=== PATIENT | female | born 1975 | race Asian ===

== ENCOUNTER 2016-07-26 13:52 | Inpatient (IN) | payer OTHER ==
--- NOTE | 2016-07-26 14:40 | EDPHY ---
H & P Time Seen by Provider: 07/26/16 14:04 HPI/ROS: CHIEF COMPLAINT: Arm and leg numbness and weakness HISTORY OF PRESENT ILLNESS: This 40-year-old woman had a respiratory virus 3 weeks ago which lasted about 2 weeks. Her had a similar illness and she had a hacking cough for a couple of weeks which resolved about a week ago. However last Wednesday night she 1st noted weakness in her legs with her left knee giving out going down the stairs. She subsequently noticed some numbness in her finger tips as well in the tips of her toes and the plantar surface of both feet. She saw Dr. Audrey Wing at [facility] on Wednesday and had labs which apparently were normal. She was then referred to Neurology but has not seen anyone yet. Over the past 24-48 hours she developed a slight headache. She developed more numbness and weakness in her arms including dropping her electric toothbrush last night using her right hand. She also has some increased difficulty writing especially using cursive script. Symptoms today moderate and increasing. Not associated with neck or back pain. Difficulty standing on 1 foot. REVIEW OF SYSTEMS: Eye: no change in vision, no double vision ENT: no sore throat Cardiac: no chest pain or syncope Pulmonary: no cough or SOB Abdomen: no vomiting, diarrhea, abdominal pain Musculoskeletal: no back pain or neck pain Skin: no rash Neuro: HPI Constitutional: no fever : no urinary symptoms A comprehensive 10 point review of systems is otherwise negative aside from elements mentioned in the history of present illness. PAST MEDICAL HISTORY: Negative Social history: General Appearance: Alert and conversant, cooperative. Eyes: No scleral icterus. ENT, Mouth: Normal mucous membranes. Respiratory: Normal respiratory effort, breath sounds equal, lungs are clear to auscultation. Cardiovascular: Regular rate and rhythm. Gastrointestinal: Abdomen is soft and non tender. Neurological: Alert and oriented x3. Normally conversant. Patient can stand on 1 foot. No pronator drift and [id number] normal bilaterally. Toes downgoing. She does not have patellar or ankle reflexes on either side. Skin: Warm and dry, no rashes. Musculoskeletal: No peripheral edema and no joint swelling. Psychiatric: Not agitated. Emergency Department course/MDM: Discussed with Ghanshyam at 1439. MRI to look for white matter lesions. Concern for possibility of multiple sclerosis, or Guillain-Addis syndrome. Discussed with the patient at 2:45 p.m. and consented. 1730: Respiratory requested to perform baseline spirometry. Admission per consulting neurologist Dr. Morrissey who is in the room with the patient at this time. Smoking Status: Never smoked Constitutional: Initial Vital Signs Temperature (C) 36.6 C 07/26/16 13:54 Heart Rate 81 07/26/16 13:54 Respiratory Rate 16 07/26/16 13:54 Blood Pressure 128/90 H 07/26/16 13:54 O2 Sat (%) 98 07/26/16 13:54 O2 Delivery Mode Room Air Allergies/Adverse Reactions: amoxicillin Allergy (Severe, Verified 07/26/16 18:14) Rash levofloxacin [From Levaquin] Allergy (Severe, Verified 07/26/16 18:13) Anaphylaxis Sulfa (Sulfonamide Antibiotics) Allergy (Severe, Verified 07/26/16 18:13) Unknown Home Medications: Medication Instructions Recorded Levonorgestrel-Ethin Estradiol 1 tab PO DAILY 07/26/16 [Myzilra-28 Tablet] Medical Decision Making - Diagnostics Imaging Results: Imaging Impressions Brain MRI 07/26/16 14:40 Impression: Normal MRI of the brain without contrast. Findings discussed with Emergency Department physician, Mathieu Domingo, at 1711 hours, 07/26/2016. Final report concurs with initial preliminary interpretation. Differential Diagnosis: Differential for weakness considered including but not limited to peripheral neuropathy, Guillain-Addis, multiple sclerosis, metabolic abnormality. Consult/Admit Bed Type: [facility] in ED at 1706, [place] 1739 - Data Points Laboratory Results: Laboratory Results 07/26/16 16:09 07/26/16 16:09 07/26/16 07/26/16 07/26/16 16:09 16:09 16:09 WBC 7.79 10^3/uL 10^3/uL (3.80-9.50) RBC 4.92 10^6/uL 10^6/uL (4.18-5.33) Hgb 15.2 g/dL g/dL (12.6-16.3) Hct 45.3 % % (38.0-47.0) MCV 92.1 fL fL (81.5-99.8) MCH 30.9 pg pg (27.9-34.1) MCHC 33.6 g/dL g/dL (32.4-36.7) RDW 11.9 % % (11.5-15.2) Plt Count 367 10^3/uL 10^3/uL (150-400) MPV 9.0 fL fL (8.7-11.7) Neut % (Auto) 55.6 % % (39.3-74.2) Lymph % (Auto) 34.1 % % (15.0-45.0) [place] % (Auto) 6.2 % % (4.5-13.0) Eos % (Auto) 2.6 % % (0.6-7.6) Baso % (Auto) 1.2 % % (0.3-1.7) Nucleat RBC Rel Count 0.0 % % (0.0-0.2) Absolute Neuts (auto) 4.34 10^3/uL 10^3/uL (1.70-6.50) Absolute Lymphs (auto) 2.66 10^3/uL 10^3/uL (1.00-3.00) Absolute Monos (auto) 0.48 10^3/uL 10^3/uL (0.30-0.80) Absolute Eos (auto) 0.20 10^3/uL 10^3/uL (0.03-0.40) Absolute Basos (auto) 0.09 10^3/uL 10^3/uL (0.02-0.10) Absolute Nucleated RBC 0.00 10^3/uL 10^3/uL (0-0.01) Immature Gran % 0.3 % % (0.0-1.1) Immature Gran # 0.02 10^3/uL 10^3/uL (0.00-0.10) Sodium 139 mEq/L mEq/L (134-144) Potassium 4.5 mEq/L mEq/L (3.5-5.2) Chloride 104 mEq/L mEq/L (97-110) Carbon Dioxide 24 mEq/l mEq/l (22-31) Anion Gap 11 mEq/L mEq/L (8-16) BUN 11 mg/dL mg/dL (7-23) Creatinine 0.8 mg/dL mg/dL (0.6-1.0) Estimated GFR > 60 Glucose 105 mg/dL H mg/dL (70-100) Calcium 9.8 mg/dL mg/dL (8.5-10.4) Beta HCG, Qual NEGATIVE Departure - Departure Disposition: [facility] Inpatient Acute Clinical Impression: Guillain Marroquin syndrome Condition: Good
[2016-07-26 16:19] LABS: % IMMATURE GRANULYOCYTES 0.3 % (0.0-1.1); ABSOLUTE IMMATURE GRANULOCYTES 0.02 10^3/uL (0.00-0.10); ADD DIFF? NO; ADD MORPH? NO; ADD SCAN? NO; ATYPICAL LYMPHOCYTE FLAG 30 (0-99); FRAGMENT RBC FLAG 0 (0-99); HEMATOCRIT 45.3 % (38.0-47.0); HEMOGLOBIN 15.2 g/dL (12.6-16.3); LEFT SHIFT FLG 0 (0-99); LIPEMIA HEMOLYSIS FLAG 80 (0-99); MEAN CELL HEMOGLOBIN 30.9 pg (27.9-34.1); MEAN CELL HEMOGLOBIN CONCENTR. 33.6 g/dL (32.4-36.7); MEAN CELL VOLUME 92.1 fL (81.5-99.8); PLATELET CLUMPS FLAG 10 (0-99); PLATELET COUNT 367 10^3/uL (150-400); RED BLOOD CELL COUNT 4.92 10^6/uL (4.18-5.33); RED CELL DISTRIBUTION WIDTH 11.9 % (11.5-15.2)
[2016-07-26 16:45] LABS: ANION GAP 11 mEq/L (8-16); CALCIUM 9.8 mg/dL (8.5-10.4); CARBON DIOXIDE 24 mEq/l (22-31); CHLORIDE 104 mEq/L (97-110); CREATININE 0.8 mg/dL (0.6-1.0); GLOMERULAR FILTRATION RATE > 60; GLUCOSE 105 mg/dL (70-100); POTASSIUM 4.5 mEq/L (3.5-5.2); SODIUM 139 mEq/L (134-144)
[2016-07-26] MEDS ORDERED: ONDANSETRON DISINTEGRATING 4 MG TAB PO PRN (19:03)
[2016-07-26] MEDS ORDERED: ONDANSETRON 4 MG/2 ML VIAL IVP PRN (19:03)
[2016-07-26] MEDS ORDERED: NS 1,000 ML IV SCH (19:15)
--- NOTE | 2016-07-26 19:24 | PDGENHP ---
History and Physical - Chief Complaint extremity parasthesias - History of Present Illness 40 yo female who is otherwise healthy, presents to ED with b/l distal LE and UE paresthesias. She had a URI 3 weeks ago and recovered. One week ago, she noticed tingling in her distal toes. In addition, she felt her left knee buckle and began having weakness in her wrists. She noticed it was hard to hold a grocery bag and difficult to grasp her toothbrush. The parasthesias progressed in an ascending fashion and she presented to the ED. She denies SOB , CP or dysphagia. She denies fevers or chills. No N/V/D or abdominal pain. She has no other significant past medical history. She is admitted to the hospital for further management. History Information - Allergies/Home Medication List Allergies/Adverse Reactions: amoxicillin Allergy (Severe, Verified 07/26/16 18:14) Rash levofloxacin [From Levaquin] Allergy (Severe, Verified 07/26/16 18:13) Anaphylaxis Sulfa (Sulfonamide Antibiotics) Allergy (Severe, Verified 07/26/16 18:13) Unknown Home Medications: Levonorgestrel-Ethin Estradiol [Myzilra-28 Tablet] 1 tab PO DAILY 07/26/16 [ Last Taken 07/18/16] I have personally reviewed and updated: family history, medical history, social history, surgical history - Past Medical History no pertinent PMH - Surgical History Reports: no pertinent surgical hx - Family History Additional family history: gout, hypertension - Social History Smoking Status: Never smoked Alcohol Use: Rarely Drug Use: None Additional social history: Lives independently with her and young son. 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 Review of Systems ROS: 10pt was reviewed & negative except for what was stated in HPI & below Physical Exam Temp Pulse Resp BP Pulse Ox 36.8 C 67 18 115/78 98 07/26/16 18:47 07/26/16 18:47 07/26/16 18:47 07/26/16 18:47 07/26/16 18:47 Constitutional: no apparent distress Eyes: PERRL Ears, Nose, Mouth, Throat: moist mucous membranes Cardiovascular: regular rate and rhythym Respiratory: no respiratory distress, clear to auscultation Gastrointestinal: normoactive bowel sounds, soft, non-tender abdomen Skin: warm Musculoskeletal: full muscle strength Neurologic: AAOx3, CN II-XII Intact, other (distal extremity sensation intact, but +paresthesias. absent achilles and patellar reflexes b/l) Psychiatric: interacting appropriately Lab Data & Imaging Review 07/26/16 16:09 07/26/16 16:09 WBC 7.79 10^3/uL (3.80-9.50) 07/26/16 16:09 RBC 4.92 10^6/uL (4.18-5.33) 07/26/16 16:09 Hgb 15.2 g/dL (12.6-16.3) 07/26/16 16:09 Hct 45.3 % (38.0-47.0) 07/26/16 16:09 MCV 92.1 fL (81.5-99.8) 07/26/16 16:09 MCH 30.9 pg (27.9-34.1) 07/26/16 16:09 MCHC 33.6 g/dL (32.4-36.7) 07/26/16 16:09 RDW 11.9 % (11.5-15.2) 07/26/16 16:09 Plt Count 367 10^3/uL (150-400) 07/26/16 16:09 MPV 9.0 fL (8.7-11.7) 07/26/16 16:09 Neut % (Auto) 55.6 % (39.3-74.2) 07/26/16 16:09 Lymph % (Auto) 34.1 % (15.0-45.0) 07/26/16 16:09 [place] % (Auto) 6.2 % (4.5-13.0) 07/26/16 16:09 Eos % (Auto) 2.6 % (0.6-7.6) 07/26/16 16:09 Baso % (Auto) 1.2 % (0.3-1.7) 07/26/16 16:09 Nucleat RBC Rel Count 0.0 % (0.0-0.2) 07/26/16 16:09 Absolute Neuts (auto) 4.34 10^3/uL (1.70-6.50) 07/26/16 16:09 Absolute Lymphs (auto) 2.66 10^3/uL (1.00-3.00) 07/26/16 16:09 Absolute Monos (auto) 0.48 10^3/uL (0.30-0.80) 07/26/16 16:09 Absolute Eos (auto) 0.20 10^3/uL (0.03-0.40) 07/26/16 16:09 Absolute Basos (auto) 0.09 10^3/uL (0.02-0.10) 07/26/16 16:09 Absolute Nucleated RBC 0.00 10^3/uL (0-0.01) 07/26/16 16:09 Immature Gran % 0.3 % (0.0-1.1) 07/26/16 16:09 Immature Gran # 0.02 10^3/uL (0.00-0.10) 07/26/16 16:09 Sodium 139 mEq/L (134-144) 07/26/16 16:09 Potassium 4.5 mEq/L (3.5-5.2) 07/26/16 16:09 Chloride 104 mEq/L (97-110) 07/26/16 16:09 Carbon Dioxide 24 mEq/l (22-31) 07/26/16 16:09 Anion Gap 11 mEq/L (8-16) 07/26/16 16:09 BUN 11 mg/dL (7-23) 07/26/16 16:09 Creatinine 0.8 mg/dL (0.6-1.0) 07/26/16 16:09 Estimated GFR > 60 07/26/16 16:09 Glucose 105 mg/dL (70-100) H 07/26/16 16:09 Calcium 9.8 mg/dL (8.5-10.4) 07/26/16 16:09 Beta HCG, Qual NEGATIVE 07/26/16 16:09 Assessment & Plan Assessment: Guillain Marroquin syndrome (Acute) - Symptoms occurred after URI several weeks ago. Neurology consulted and case discussed with Dr. Morrissey. She will received IVIG tonight along with IVF's and LP in am to evaluate CSF, studies ordered per neurology. Will have frequent RT monitoring of her respiratory status in the SDU. No respiratory symptoms at this time. Full code Dispo - inpt, will likely require >48 hrs hospitalization for ongoing management of guillain barre
[2016-07-26] MEDS: ACETAMINOPHEN 500 MG TAB PO SCH (20:46)
[2016-07-26] MEDS: diphenhydrAMINE 25 MG CAP PO SCH (20:47)
--- NOTE | 2016-07-26 21:44 | GCON ---
[f rep st] CONSULTATION NEUROLOGY CONSULTATION REFERRING PHYSICIAN: Dr. Angel CHIEF COMPLAINT: Numbness. BILLING INFORMATION: 70 total minutes on floor time in reviewing records, history, MRI images, and in direct counseling with the patient and her family. HISTORY OF PRESENT ILLNESS: The patient is a very pleasant 40-year-old lady who is generally very healthy and only takes oral contraceptive medication in terms of prescriptions. Her recently was in [place] and got an upper viral URI and she got the same upper respiratory tract infection around 2 weeks ago. As the URI symptoms were resolving, she began having neurologic symptoms. Specifically, she felt some mild weakness in her left knee characterized by buckling while walking. This occurred last Wednesday night 1 week ago. She then noticed by Wednesday some numbness and tingling in the toes of her left foot and then right foot. Over the week, she then developed numbness in her upper extremities, tingling in her fingers by Wednesday. She had been in touch with her PCP, who arranged a neurologic consultation and advised her to come to the ED if things progressed. Then today the numbness progressed into both forearms and a constant tingling and she felt a little bit clumsy because of the weakness. The clumsiness or incoordination was proportional to the weakness. There was no independent ataxia. Because of these symptoms, she came to the emergency department. There was no dyspnea, orthopnea, problems with swallowing or double vision. Specifically, no shortness of breath or bulbar symptoms. The symptoms still are on the crescendo profile based on the history I have provided above. REVIEW OF SYSTEMS: A 10-point review of systems was done and only pertinent to the HPI. PAST MEDICAL HISTORY: None. HOME MEDICATIONS: Oral contraceptives. FAMILY HISTORY: Negative for Guillain-Beaverdam syndrome. ALLERGIES: Sulfa, amoxicillin and Levaquin. PHYSICAL EXAMINATION: VITAL SIGNS: Blood pressure is 118/64, temperature 36.7 , heart rate 74, respirations 18. GENERAL: In no acute distress. Very pleasant. No aphasia. Lucid. NEUROLOGIC: Cranial nerves: Normal 2 through 7 , 11, and 12. No shortness of air. We will be doing a respiratory check in the ER. Motor: The patient had normal strength throughout. I could not detect any weakness, however, she was areflexic in all limbs. She does specifically recall having hyperreflexic DTRs during her routine primary care visits. Toes are downgoing bilaterally. Sensory: She has decreased light touch in a stocking-glove distribution bilaterally. Coordination normal in upper and lower extremities. Gait was normal to straightaway and heel-to-toe. Romberg was negative. TESTING: The patient had an MRI of brain which was normal. There is no evidence of demyelination or mass lesions. IMPRESSION AND PLAN: 1. Guillain-Beaverdam syndrome. The patient's clinical history and neurologic exam are consistent with Guillain- Beaverdam syndrome. She is still on the crescendo phase of the disorder and therefore I recommend admission to the step-down unit with close observation and q.4 respiratory checks to monitor for any possible respiratory failure from this illness. I have written parameters and spoken to Respiratory Therapy myself, they will have q.4 [id number] respiratory checks for vital capacity and maximal inspiratory pressures. She will need monitoring for any dysautonomia and DVT prophylaxis. We will check a stat IgA level just to have a baseline. I have ordered a lumbar puncture under fluoroscopy to check for elevated protein with normal cells which is consistent with Guillain-Beaverdam syndrome. I have ordered IVIG 0.4 g/kg x5 days, and have spoken to the pharmacist regarding the dosing. We will closely monitor her in the step-down unit for any symptoms or signs of respiratory failure or dysautonomia so we can treat appropriately. She will start IVIG tonight with a plan for a total dose of 5 days. My colleague, Dr. Yo Armando, will be taking over the service tomorrow. I will discuss this patient with him so he can follow her as well and help guide care. If she has an allergic reaction to IVIG, I discussed treatment with Dr. Tejada, the hospitalist who will be admitting the patient. No further recommendations now. Please do not hesitate to call if there are any questions or changes in this patient's neurologic status. Thank you for this consultation. /[id number]/MODL MTDD
[2016-07-26] MEDS: IMMUNE GLOBULIN 10 GM/100 ML VIAL IV SCH (21:56)
[2016-07-26] MEDS: LEVONORGESTREL ETHIN ESTRADIOL PO SCH (22:02)
[2016-07-26] MEDS: IMMUNE GLOBULIN 20 GM/200 ML VIAL IV SCH (23:43)
[2016-07-27] MEDS: LEVONORGESTREL ETHIN ESTRADIOL PO SCH (08:44)
[2016-07-27 10:49] LABS: INR 1.02 (0.83-1.16); PROTIME(PATIENT) 13.3 SEC (12.0-15.0)
[2016-07-27 10:50] LABS: APTT 25.8 SEC (23.0-38.0)
[2016-07-27] MEDS: ACETAMINOPHEN 325 MG TAB PO PRN (11:36)
--- NOTE | 2016-07-27 16:02 | HOSPPROG ---
Hospitalist Progress Note Assessment/Plan: assessment: 40-year-old female presents with acute Guillain-Puposky syndrome Plan: 1. Guillain-Puposky syndrome. Acute, evidenced by bilateral upper and lower extremity paresthesias as well as paresis on presentation, requiring IVIG - discussed with Dr. Jaylen Jeffery, we agreed that the patient is stable from a respiratory standpoint and she is not demonstrating any decline in her negative inspiratory force or forced vital capacity, she can be safely monitored med surge unit this time - discussed with Dr. Luis Armando, he recommends the patient should receive a total of 5 doses of IVIG, currently receiving her 2nd dose at this time, she will require ongoing monitoring to ensure she does not experience a reaction or decompensate further -MRI normal, Dr. Armando has decided not to have an LP performed diet. Regular Prophylaxis. Low risk patient, SCDs Code. Full Disposition. Anticipated discharge is 07/28, pending clinical improvement of above Subjective: patient reports she has ongoing paresthesias in her bilateral hands Objective: Vital Signs Temp Pulse Resp BP Pulse Ox 36.6 C 65 16 124/79 H 100 07/27/16 04:00 07/27/16 12:00 07/27/16 10:00 07/27/16 12:00 07/27/16 12:00 07/26/16 07/27/16 07/28/16 05:59 05:59 05:59 Intake Total 800 Balance 800 PT 13.3 SEC (12.0-15.0) 07/27/16 10:30 INR 1.02 (0.83-1.16) 07/27/16 10:30 - Time Spent With Patient Time Spent with Patient: greater than 25 minutes Time Spent with Patient: Greater than 25 minutes spent on this patients care, greater than 50% of time spent counseling, educating, and coordinating care regarding the above mentioned plan. - Physical Exam Constitutional: no apparent distress, appears nourished, not in pain Cardiovascular: regular rate and rhythym, no murmur, rub, or gallop Respiratory: no respiratory distress, no rales or rhonchi, clear to auscultation Neurologic: AAOx3, other ( subjective paresthesias along the radial aspect of her bilateral 2nd digit as well as distal palmar surfaces of her fingers), No weakness ( motor strength 5/5 bilateral upper and lower extremity) Psychiatric: interacting appropriately, not anxious, not encephalopathic, thought process linear ICD10 Worksheet Patient Problems: Problems Problem Status Onset Guillain Marroquin syndrome Acute
[2016-07-27] MEDS: ACETAMINOPHEN 500 MG TAB PO SCH (20:19)
[2016-07-27] MEDS: diphenhydrAMINE 25 MG CAP PO SCH (20:20)
--- NOTE | 2016-07-27 20:22 | NEUROPROG ---
Assessment: CC: Inpatient F/U for Suspected Guillian Kingston Syndrome HPI: This patient was initially seen as an inpatient consult by Dr. Ej Morrissey on at [facility]. She had a recent URI 2 weeks prior to this date. 1 week after that she began getting subtle left knee weakness that progressed to numbness/ ntinglin int he left foot and then right foot. This progressed to forearm b/l numbness/tingling so she came to the [facility] ER on 07/26/16. Neurologic evaluation by Dr. 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 She had no respiratory issues at the time of admission. F/U on 07/27/16. She felt her legs were less tingly and had better sensation after her first dose of IVIG. She had no reflexes in her legs but denied breathing issues or other problems. She was able to walk around the hospital room without problems. PMHx: none Home Meds: oral contraceptives SHx: no tobacco FHx: negative for guillian barre syndrome ROS: Pt denied acute fever, total vision loss, active severe chest pain, respiratory failure, total body severe rash, total bowel/bladder incontinence, psychosis, active seizures, or active bleeding Labs: 07/26/16- CBC wnl, Chem GLuc 105H, HCG neg Rads: 07/26/16- Brain MRI w/o con: normal Assessment: 1. Guillian Kingston Syndrome (GBS): appears to be improving with less altered sensation in legs and no new respiratory, cardiac, or weakness issues. Pt wants to discharge [facility] and can monitor for any new breathing issues. She accepts risk of early discharge to include possibly missing subtle progression of the GBS. I feel she will do well in home-based IVIG inufsion. Plan: - IVIG 0.4g/kg divided over 5 days as infusion (we will see if her insurance will approve outpatient infusion therapy and if they do we will discharge her) - Spinal tap canceled (will not oil changer at this time) - If discharged she will have a f/u visit with me in my clinic on this Wednesday after completing IVIG for 5 days - Outpatient physical therapy if discharged, otherwise we will do inpatient PT 35 min spent with patient, majority of time spent counseling on prognosis and treatment options. Objective: Vital Signs Temp Pulse Resp BP Pulse Ox 36.7 C 72 18 112/73 99 07/27/16 16:00 07/27/16 16:00 07/27/16 16:00 07/27/16 16:00 07/27/16 16:00 07/26/16 07/27/16 07/28/16 05:59 05:59 05:59 Intake Total 800 500 Balance 800 500 PT 13.3 SEC (12.0-15.0) 07/27/16 10:30 INR 1.02 (0.83-1.16) 07/27/16 10:30 Allergies/Adverse Reactions: amoxicillin Allergy (Severe, Verified 07/26/16 18:14) Rash levofloxacin [From Levaquin] Allergy (Severe, Verified 07/26/16 18:13) Anaphylaxis Sulfa (Sulfonamide Antibiotics) Allergy (Severe, Verified 07/26/16 18:13) Unknown
[2016-07-27] MEDS: IMMUNE GLOBULIN 20 GM/200 ML VIAL IV SCH (21:30)
[2016-07-28] MEDS: IMMUNE GLOBULIN 10 GM/100 ML VIAL IV SCH (01:58)
[2016-07-28 08:18] VITALS: BP 101/73; PULSE 80; RESP 18; TEMP 98.2; O2SAT 94
[2016-07-28] MEDS: ACETAMINOPHEN 325 MG TAB PO PRN (08:34)
[2016-07-28] MEDS: LEVONORGESTREL ETHIN ESTRADIOL PO SCH (08:35)
[2016-07-28] MEDS ORDERED: ALTEPLASE 2 MG VIAL IVP PRN (11:47)
[2016-07-28] MEDS ORDERED: IBUPROFEN 600 MG TAB PO ONE (11:55)
--- NOTE | 2016-07-28 11:57 | PDIAF ---
- Diagnosis Diagnosis: Guillan-Dallas Syndrome Code Status: Full Code - Medication Management Discharge Medications: Medications to Continue on Transfer Levonorgestrel-Ethin Estradiol [Myzilra-28 Tablet] 1 tab PO DAILY 07/26/16 [ Last Taken 07/18/16] Acetaminophen [Tylenol ES 500 mg (*)] 1,000 mg PO DAILY@1930 #6 tab 07/28/16 [ Last Taken Unknown] Ibuprofen 600 mg PO Q6 PRN #40 tablet 07/28/16 [Last Taken Unknown] Immune Globulin [Privigen 10 gm/100 ml (*)] 10 gm IV DAILY@2030 #3 vial [Last Taken Unknown] diphenhydrAMINE [Benadryl 25 MG (*)] 50 mg PO DAILY@1930 #6 cap 07/28/16 [Last Taken Unknown] Discharge Medications: Refer to the Discharge Home Medication list for PRN reason. PICC Care - Routine: Yes - Orders Services needed: Home Care, Registered Nurse Home Care Face to Face: I certify that this patient was under my care and that I had the required [id number] encounter meeting the encounter requirements on the discharge day. My findings support the fact that the patient is homebound as defined in CMS Chapter 7 Medicare Benefits Manual 30.1.1, The condition of the patient is such that there exists a normal inability to leave home and consequently, leaving home would require a considerable and taxing effort. Oxygen: NA Diet Recommendation: no restrictions on diet Jean-Baptiste: Not applicable - Follow Up Care Current Providers and Referrals: Audrey Wing MD [Primary Care Provider] - As per Instructions (please schedule appointment on Wednesday) Yo Armando DO [Medical Doctor] -
--- NOTE | 2016-07-28 18:45 | PDDCSUM ---
Discharge Summary Discharge Summary: DISCHARGE SUMMARY FOLLOW-UP ITEMS: Neurology clinic this Wednesday DATE OF ADMISSION: 07/26/2016 DATE OF DISCHARGE: 07/28/16 DISCHARGE DIAGNOSES: 1. Acute Guillain-Harvey syndrome CONSULTATIONS: Neurology PROCEDURES / IMAGING: Brain MRI demonstrating no abnormalities, PICC line insertion CHIEF COMPLAINT: Paresthesias bilateral hands and feet, subjective paresis bilateral lower extremities SUBJECTIVE: Patient is feeling well at time of discharge, her paresthesias on the palmar aspect of her hands are improving, persists on the tips of her fingers PHYSICAL EXAM ON DISCHARGE: Systolic blood pressure stable, sensation subjectively reduced along the finger tips, alert awake oriented x3 LABS ON DISCHARGE: None HOSPITAL COURSE BY PROBLEM: 1. Acute Guillain-Harvey syndrome. Evidenced by bilateral upper and lower extremity paresthesias as well as subjective paresis, following a URI. MRI was unremarkable, a lumbar puncture was not indicated, she was evaluated by Neurology and they recommended 5 doses of IVIG. It was initially felt that patient was experiencing the crescendo phase of GBS and she was placed in the step-down unit for frequent neuro checks, frequent respiratory checks. She received the 1st 2 doses as an inpatient and tolerated them well with mild side effects of headache, resolving with Tylenol and ibuprofen. We arranged outpatient IVIG as well as PICC line insertion and the patient will have these treatments performed the remainder of this week and follow up in the Neurology Clinic on Wednesday. Her symptoms were improving during this hospitalization. DISCHARGE MEDICATIONS: Please see official discharge medication reconciliation sheet in chart , IVIG, as needed Tylenol and ibuprofen, premedicate IVIG with Benadryl and Tylenol. DISCHARGE INSTRUCTIONS: Patient should follow up on Wednesday at the Neurology Clinic. TIME SPENT: Greater than 30 minutes were spent on direct patient care, as well as discharge planning and preparation.
== END 2016-07-28 13:47 | disposition home health service (06) | DRG 96 ==
LOC: F2N 18:10
PROVIDERS: ADMIT Hospitalist; ATTEND Internal Medicine
PROC: 02HV33Z Insertion of Infusion Device into Superior Vena Cava, Percutaneous Approach (ICD-10-PCS; principal; 2016-07-28)
PROC: 30233S1 Transfusion of Nonautologous Globulin into Peripheral Vein, Percutaneous Approach (ICD-10-PCS; 2016-07-28)
DX: G61.0 Guillain-Barre syndrome (principal)
CPT/HCPCS: C1751; J1459

== ENCOUNTER → 2016-11-19 | Outpatient (CLI) | payer OTHER | LOC: FIMAGING 13:41 | PROVIDERS: ATTEND Obstetrics & Gynecology | DX: Z12.31 Encounter for screening mammogram for malignant neoplasm of breast (principal) | CPT/HCPCS: G0202 ==